=== PATIENT | female | born 1960 | race Caucasian/White ===

== ENCOUNTER → 2023-08-09 10:45 | Outpatient (CLI) | payer OTHER, SELFPAY ==
[2023-08-09 19:56] LABS: Add Manual Diff / Slide Review NO; Appearance Urine UA CLEAR; Basophils Absolute Auto 0 /uL (0-100); Basophils Percent Auto 0.5 % (0-2); Bilirubin Urine UA NEGATIVE (NEGATIVE); Color Urine UA YELLOW; Eosinophils Absolute Auto 0 /uL (0-450); Eosinophils Percent Auto 0.6 % (2-4); Glucose Urine UA NEGATIVE (Negative); Hematocrit 39.2 % (36-46); Hemoglobin 13.5 g/dL (12.0-16.0); Ketones Urine UA NEGATIVE (NEGATIVE); Leukocyte Esterase Urine UA NEGATIVE (NEGATIVE); Lymphocytes Absolute Auto 1400 /uL (1100-4500); Lymphocytes Percent Auto 37.5 % (25-40); Mean Corpuscular HGB Conc 34.5 % (30-36); Mean Corpuscular Hemoglobin 33.3 PG (26-34); Mean Corpuscular Volume 96.4 fL (80-100); Monocytes Absolute Auto 400 /uL (0-900); Monocytes Percent Auto 11.3 % (3-14); Neutrophils Absolute Auto 1900 /uL (1500-7000); Neutrophils Percent Auto 50.1 % (50-75); Nitrite Urine UA NEGATIVE (Negative); Occult Blood Urine UA NEGATIVE (Negative); Platelet Count 381 X10^3/uL (150-400); Protein Urine UA NEGATIVE (Negative); Red Blood Cell Count 4.07 X10^6/uL (4.0-5.2); Red Cell Distribution Width 12.7 % (11.6-14.8); Specific Gravity Urine UA 1.015 (1.000-1.035); Urobilinogen Urine UA 0.2 E.U./dL (0.2); White Blood Cell Count 3.7 X10^3/uL (4.5-11.0)
[2023-08-09 19:57] LABS: HEMOLYSIS < 15 (0-50); Iron 133 ug/dL (37-170)
[2023-08-09 19:58] LABS: HEMOLYSIS < 15 (0-50)
[2023-08-09 20:05] LABS: Bacteria Urine Occasional (0-1); RBC Urine 0-1/HPF (0-5/HPF); Squamous Epithelial Cell Urine 1-5 /HPF (0-5/HPF); WBC Urine 0-1/HPF (0-5/HPF)
[2023-08-09 20:06] LABS: Alanine Aminotransferase 23 IU/L (<35); Albumin 4.7 g/dL (3.5-5.0); Albumin Globulin Ratio 1.3 (1.0-2.8); Alkaline Phosphatase 60 U/L (38-126); Aspartate Aminotransferase 58 IU/L (14-36); BUN Creatinine Ratio 17.9 (6-22); Bilirubin Total 0.9 mg/dL (0.2-1.3); Blood Urea Nitrogen 10 mg/dL (7-17); Carbon Dioxide 27 mmol/L (22-32); Chloride 101 mmol/L (98-107); Culture Indicated Urine Cult Not Indicated; Estimated Glomerular Filt Rate > 60 mL/min (>60); Globulin 3.7 g/dL (1.7-4.1); Glucose 89 mg/dL (80-110); Magnesium 2.2 mg/dL (1.6-2.3); Sodium 136 mmol/L (137-145); Total Protein 8.4 g/dL (6.3-8.2); Triglycerides 129 mg/dL (35-150)
[2023-08-09 20:07] LABS: Hemoglobin A1C% w Est Avg Glu 4.7 % (4.0-6.0)
[2023-08-09 20:09] LABS: Percent Iron Saturation 51 % (15-50); Total Iron Binding Capacity 260 ug/dL (265-497); Transferrin 214 mg/dL (206-381)
[2023-08-09 20:14] LABS: Cholesterol 346 mg/dL (140-199); HDL Cholesterol 133 mg/dL (40-60); LDL Cholesterol Calculated 187 mg/dL (<100)
[2023-08-09 20:17] LABS: Free T3, Triiodothyronine Free 3.48 pg/mL (2.77-5.27); Free T4, Direct Thyroxine 0.95 ng/dL (0.78-2.19)
[2023-08-09 20:19] LABS: Progesterone, Total 1.63 ng/mL
[2023-08-09 20:30] LABS: Thyroid Stimulating Hormone 3.72 uIU/mL (0.47-4.68)
[2023-08-09 20:34] LABS: Estradiol, Total 40.5 pg/mL
[2023-08-09 20:39] LABS: Ferritin 66 ng/mL (11-264)
[2023-08-10 02:13] LABS: Carcinoembryonic Antigen 1.7 ng/mL (0.1-3.0)
[2023-08-10 02:49] LABS: Folate > 20.0 ng/mL (2.76-20.0); Vitamin B12 > 1000 pg/mL (239-931)
[2023-08-10 03:12] LABS: High Sensitivity CRP - Cardiac 0.7 mg/L (1.0-3.0)
[2023-08-11] LABS: Thyroid Peroxidase Antibodies <9 IU/mL (0-34); Triiodothyronine T3 Total 66 ng/dL (71-180)
[2023-08-12 07:09] LABS: Insulin Level Total 4.8 uIU/mL (2.6-24.9)
[2023-08-12 21:56] LABS: IGF-1 111 ng/mL (57-202)
[2023-08-16 05:52] LABS: Percent Free Testosterone 1.52 % (0.50-2.80); Testosterone Free 0.19 ng/dL (0.10-0.85); Testosterone Total 12.5 ng/dL (7.0-40.0)
[2023-08-17 01:26] LABS: Pregnenolone 34 ng/dL (.)
== END ==
PROVIDERS: PCP Naturopath; Visit Provider Naturopath
DX: F43.20 Adjustment disorder, unspecified (principal); N95.9 Unspecified menopausal and perimenopausal disorder; R53.83 Other fatigue; Z00.00 Encounter for general adult medical examination without abnormal findings
CPT/HCPCS: 80053; 80061; 81001; 82306; 82378; 82607; 82627; 82670; 82728; 82746; 83036; 83525; 83540; 83550; 83735; 84140; 84144; 84305; 84402; 84403; 84439; 84443; 84480; 84481; 85025; 86140; 86376; 86900; 86901

== ENCOUNTER → 2024-05-09 09:38 | Outpatient (CLI) | payer OTHER, SELFPAY ==
--- NOTE | 2024-05-09 09:40 | DI.RAD.S_ITS ---
PROCEDURE: XR DEXA AXIAL SKELETON INDICATIONS: osteopenia COMPARISON: None. FINDINGS: Lumbar Spine: Bone mineral density 0.749 g/cm2, T score -2.7. Left Hip: Bone mineral density 0.676 g/cm2, T score -2.2. Left Femoral Neck: Bone mineral density 0.553 g/cm2, T score -2.7. Right Hip: Bone mineral density 0.677 g/cm2, T score -2.2. Right Femoral Neck: Bone mineral density 0.552 g/cm2, T score -2.7. Fracture Risk Calculation (when applicable): 10-year fracture risk of a major osteoporotic fracture 12% and of a hip fracture 2.8%. (T score greater or equal to -1.0 to: NORMAL) (T score from -1.1 to -2.4: OSTEOPENIA) (T score less than or equal to -2.5: OSTEOPOROSIS) IMPRESSION: Finding is consistent with osteoporosis. Follow-up guidelines as follows: Osteoporosis: Consider a repeat DEXA and Vertebral Fracture Assessment (VFA) exam in 2 years or sooner if medically necessary, to reassess this patient's status. Osteopenia: Consider a repeat DEXA in 2-3 years to reassess this patient's status, or if there is a new clinical indication. Normal: Consider a repeat DEXA in 5 years or sooner, or if there is a new clinical indication. All treatment decisions require clinical judgment and consideration of individual patient factors, including patient preferences, comorbidities, previous drug use, risk factors not captured in the FRAX model (e.g., frailty, falls, vitamin D deficiency, increased bone turnover, interval significant decline in bone density ) and possible under- or over-estimation of fracture risk by FRAX. In addition, the [employer] Guide recommends that FDA-approved medical therapies be considered in postmenopausal women and men age >= 50 years with a: * Hip or vertebral (clinical or morphometric) fracture * T-score of <=-2.5 at the spine or hip * Ten-year fracture probability by FRAX of >= 3% for hip fracture or >=20% for major osteoporotic fracture. People with diagnosed cases of osteoporosis or at high risk for fracture should have regular bone mineral density tests. For patients eligible for Medicare, routine testing is allowed once every 2 years. The testing frequency can be increased to one year for patients who have rapidly progressing disease, those who are receiving or discontinuing medical therapy to restore bone mass, or have additional risk factors. Dictated by: Narayan Mills M.D. on 05/09/2024 at 13:22 Approved by: Narayan Mills M.D. on 05/09/2024 at 13:23
== END ==
LOC: RAD 09:39
PROVIDERS: PCP Family Medicine; Referring Provider Family Medicine; Visit Provider Family Medicine
DX: M81.0 Age-related osteoporosis without current pathological fracture (principal); Z78.0 Asymptomatic menopausal state; Z13.29 Encounter for screening for other suspected endocrine disorder; Z13.6 Encounter for screening for cardiovascular disorders; R74.01 Elevation of levels of liver transaminase levels; Z13.1 Encounter for screening for diabetes mellitus; R53.83 Other fatigue; E78.2 Mixed hyperlipidemia
CPT/HCPCS: 77080

== ENCOUNTER → 2024-06-12 08:59 | Outpatient (CLI) | payer OTHER, SELFPAY ==
[2024-06-12 21:04] LABS: Add Manual Diff / Slide Review NO; Basophils Absolute Auto 0 /uL (0-100); Eosinophils Absolute Auto 100 /uL (0-450); Eosinophils Percent Auto 1.7 % (2-4); Hematocrit 38.4 % (36-46); Lymphocytes Absolute Auto 1600 /uL (1100-4500); Lymphocytes Percent Auto 38.3 % (25-40); Mean Corpuscular HGB Conc 33.8 % (30-36); Mean Corpuscular Hemoglobin 32.7 PG (26-34); Mean Corpuscular Volume 96.7 fL (80-100); Monocytes Absolute Auto 500 /uL (0-900); Monocytes Percent Auto 11.1 % (3-14); Neutrophils Absolute Auto 2000 /uL (1500-7000); Neutrophils Percent Auto 47.9 % (50-75); Platelet Count 309 X10^3/uL (150-400); Red Blood Cell Count 3.98 X10^6/uL (4.0-5.2); Red Cell Distribution Width 12.5 % (11.6-14.8); White Blood Cell Count 4.2 X10^3/uL (4.5-11.0)
[2024-06-12 21:15] LABS: Alanine Aminotransferase 14 IU/L (<35); Albumin 4.2 g/dL (3.5-5.0); Albumin Globulin Ratio 1.4 (1.0-2.8); Alkaline Phosphatase 56 U/L (38-126); Aspartate Aminotransferase 26 IU/L (14-36); BUN Creatinine Ratio 22.8 (6-22); Bilirubin Total 0.9 mg/dL (0.2-1.3); Blood Urea Nitrogen 13 mg/dL (7-17); Calcium 9.5 mg/dL (8.4-10.2); Carbon Dioxide 27 mmol/L (22-32); Chloride 105 mmol/L (98-107); Cholesterol 269 mg/dL (140-199); Estimated Glomerular Filt Rate > 60 mL/min (>60); Globulin 2.9 g/dL (1.7-4.1); Glucose 86 mg/dL (80-110); HEMOLYSIS < 15 (0-50); Potassium 4.3 mmol/L (3.4-5.1); Sodium 136 mmol/L (137-145); Total Protein 7.1 g/dL (6.3-8.2); Triglycerides 109 mg/dL (35-150)
[2024-06-12 21:24] LABS: HDL Cholesterol 120 mg/dL (40-60); LDL Cholesterol Calculated 127 mg/dL (<100)
[2024-06-12 21:42] LABS: Thyroid Stimulating Hormone 2.89 uIU/mL (0.47-4.68)
== END ==
PROVIDERS: PCP Family Medicine; Referring Provider Family Medicine; Visit Provider Family Medicine
DX: Z13.29 Encounter for screening for other suspected endocrine disorder (principal); R53.83 Other fatigue; E78.2 Mixed hyperlipidemia; Z13.6 Encounter for screening for cardiovascular disorders; Z13.1 Encounter for screening for diabetes mellitus; R74.01 Elevation of levels of liver transaminase levels; Z13.9 Encounter for screening, unspecified
CPT/HCPCS: 80053; 80061; 84443; 85025